=== PATIENT | male | born 1975 | race Caucasian/White ===

== ENCOUNTER 2018-12-22 22:56 | Emergency (ER) | payer BC, MEDICAID ==
[~2018-12-22] VITALS: Ht 185.4 cm; Wt 77.1 kg
--- NOTE | 2018-12-23 00:55 | NUR ---
Patient discharged to home in stable conditon. Written and verbal after care instructions given. Patient verbalizes understanding of instructions.
== END 2018-12-23 00:57 | disposition home or self-care (01) ==
LOC: ER 22:58
DX: J40 Bronchitis, not specified as acute or chronic (principal)
CPT/HCPCS: 71045; A4663

== ENCOUNTER 2021-08-19 23:54 | Emergency (ER) | payer BC, MEDICAID ==
[~2021-08-19] VITALS: Ht 185.4 cm; Wt 74.8 kg
--- NOTE | 2021-08-20 00:08 | NUR ---
PT AMBULATED TO ER C/O SORE THROAT X1 WEEK, NO SOB OR LABORED BREATHING, AFEBRILE. DENIES ANY CP/PRESSURE. NO GI/ DISTRESS. CLEAR SPEECH, COMPLETE SENTENCES.
--- NOTE | 2021-08-20 00:14 | NUR ---
DR. ROSEN AT BEDSIDE, MSE IN PROGRESS.
[2021-08-20 00:30] VITALS: BP 127/70
--- NOTE | 2021-08-20 00:30 | NUR ---
Patient discharged to home in stable condition. Written and verbal after care instructions given. Patient verbalizes understanding of instructions. Stressed follow up or return to ER for worsening s/s.
== END 2021-08-20 00:30 | disposition home or self-care (01) ==
LOC: ER 08-20
DX: J02.9 Acute pharyngitis, unspecified (principal); Z86.16 Personal history of COVID-19
CPT/HCPCS: 87070; A4663

== ENCOUNTER 2021-10-14 22:17 | Emergency (ER) | payer MEDICAID ==
[~2021-10-14] VITALS: Ht 185.4 cm; Wt 74.8 kg
[2021-10-14] MEDS ORDERED: LIDOCAINE HCL 1% 20 ML VIAL IJ ONE (23:15)
[2021-10-14] MEDS ORDERED: LIDOCAINE HCL 1% 20 ML VIAL ONE (23:17)
[2021-10-15] MEDS ORDERED: NEOMY/BACITRA/POLYMYXIN B OINT UD PACKET TP ONE ×2 (00:03)
[2021-10-15 00:05] VITALS: BP 126/65
== END 2021-10-15 00:06 | disposition home or self-care (01) ==
LOC: ER 22:20
DX: L72.8 Other follicular cysts of the skin and subcutaneous tissue (principal)
CPT/HCPCS: 99282; J3490; A4663